=== PATIENT | female | born 1940 | race African-American/Black ===

== ENCOUNTER 2016-10-21 05:37 | Day surgery (SDC) | payer MEDICARE, MEDICAID ==
--- NOTE | 2016-10-18 22:08 | Pre-op HX & Phy Repo 2 SIG ---
DATE OF ADMISSION: 10/21/2016 DATE OF SURGERY: 10/21/2016 PREOPERATIVE DIAGNOSIS: Dislocated intraocular lens left eye with displaced Ozurdex implant, left eye. PROCEDURES PERFORMED WILL BE: 1. Removal and replacement of dislocated intraocular lens. 2. Removal of displaced Ozurdex implant. BRIEF NOTE: This is a second [place] admission for the patient who is a very pleasant 76-year-old lady who has a dislocated intraocular lens and also a displaced Ozurdex implant. PAST OCULAR HISTORY: Remarkable for cataract operation done on the right eye in 2014 followed by similar procedure on the left in early 2015 which was complicated by massive choroidal hemorrhage. She underwent a vitrectomy with drainage of choroidals at [place] in August of 2015 and over time has done well but she is troubled by the displacement of the lens implant and chronic cystoid edema. Ozurdex injection was performed to control the edema roughly three weeks ago but over time the implant displaced anteriorly. She is admitted for removal of the Ozurdex implant and removal and replacement of the lens implant with posterior sewn-in version. PAST MEDICAL HISTORY: Remarkable for arthritis, hypertension, elevated cholesterol. MEDICATIONS: She is on Crestor, hydralazine, levothyroxine, nifedipine. ALLERGIES: She has no known allergies. PHYSICAL EXAMINATION: Best vision at the time of admission was 20/50 in the right eye and 24/100 in the left with pressures of 15. Anterior segment on the right was quiet with a posterior chamber lens in excellent position. The left eye showed fixed dilation of the pupil. The pupil was displaced superiorly. In addition, the sewn in lens implant was displaced nasally and there were visible sutures at 3 and 9 o'clock. Ozurdex implant was noted at the 6 o'clock position without significant corneal edema. Funduscopic examination of the right eye was benign. The left showed the retina to be all attached. The cup was roughly 0.3 but there was obvious cystoid edema. General physical examination will be performed by Dr. Hernandez. ASSESSMENT: 1. Dislocated intraocular lens, left eye. 2. Displaced Ozurdex implant. PLAN: As before would be to remove and replace the intraocular lens with the suture on the right. The Ozurdex implant will also be either repositioned or removed. The risks and benefits of surgery gone over the patient including potential for infection, hemorrhage, need for additional operations, remote possibility of loss of the eye. The risk of anesthesia was discussed. She understands and consents to the surgery, which will be performed on Friday. Jourdan Thomas M.D. DR: Xi JOB#: [id number] CC:
[2016-10-21] VITALS (12 sets, daily range): BP systolic 149–184; BP diastolic 73–91
[~2016-10-21] VITALS: Ht 149.9 cm; Wt 59.0 kg
[~2016-10-21 05:37] MED LIST: ASPIR 8181 MG ORAL; CRESTOR40 MG ORAL; HYDRALAZINE HCL25 M1 ORAL; LEVOTHYROXINE50 MCG ORAL; NIFEDIPINE ER30 M2 ORAL
[2016-10-21] MEDS ORDERED: Ciprofloxacin Opth Soln LEFT EYE SCH (06:00)
[2016-10-21] MEDS ORDERED: Pred Forte 1% Opth Susp 1ml LEFT EYE SCH (06:00)
[2016-10-21] MEDS ORDERED: Cyclopentolate 1% Opth Sol ONE (06:03)
[2016-10-21] MEDS ORDERED: Gatifloxacin Opth Solution 0.5% ONE (06:04)
[2016-10-21] MEDS ORDERED: Phenylephrine 2.5% Op Soln ONE (06:04)
[2016-10-21] MEDS ORDERED: Flurbiprofen 0.03% Opth Sol 2.5ml ONE (06:04)
[2016-10-21] MEDS: Phenylephrine 2.5% Op Soln LEFT EYE SCH ×3 (06:12→06:33)
[2016-10-21] MEDS: Gatifloxacin Opth Solution 0.5% LEFT EYE SCH ×3 (06:12→06:33)
[2016-10-21] MEDS: Flurbiprofen 0.03% Opth Sol 2.5ml LEFT EYE SCH ×3 (06:12→06:32)
[2016-10-21] MEDS: Cyclopentolate 1% Opth Sol OP SCH ×3 (06:12→06:32)
[2016-10-21 06:26] LABS: BASOPHILS % (AUTO) 1.1 % (0.0-2.0); EOSINOPHILS % (AUTO) 1.3 % (0.0-3.0); LYMPHOCYTES % (AUTO) 28.9 % (20.0-45.0); MEAN CORPUSCULAR HGB CONC 32.2 G/DL (32.0-36.0); MEAN CORPUSCULAR VOLUME 90 FL (80-99); MEAN PLATELET VOLUME 10.4 FL (6.5-10.1); MONOCYTES % (AUTO) 9.1 % (1.0-10.0); NEUTROPHILS % (AUTO) 59.5 % (45.0-75.0); PLATELET COUNT 164 K/UL (150-450); RED BLOOD COUNT 5.07 M/UL (4.20-5.40); RED CELL DISTRIBUTION WIDTH 12.5 % (11.6-14.8); WHITE BLOOD COUNT 8.8 K/UL (4.8-10.8)
--- NOTE | 2016-10-21 06:32 | Pre-Procedure Note/Attestation ---
Pre-Procedure Note/Attestation Complete Prior to Procedure Planned Procedure: left Procedure Narrative: PPV, removal of displaced Ozurdex implant, removal and replacement of dislocated IOL, Kenalog injection L eye Indications for Procedure Pre-Operative Diagnosis: Dislocated IOL L eye with CME, Dislocated Ozurdex implant. Attestation I attest that I discussed the nature of the procedure; its benefits; risks and complications; and alternatives (and the risks and benefits of such alternatives ), prior to the procedure, with the patient (or the patient's legal printing sales representative). I attest that, if there was a reasonable possibility of needing a blood transfusion, the patient (or the patient's legal printing sales representative) was given the [place] [facility] standardized written summary, pursuant to the Narciso [place] Blood Safety Act ([place] Health and Safety Code # 1645, as amended). I attest that I re-evaluated the patient just prior to the surgery and that there has been no change in the patient's H&P, except as documented below: GLENN SWENSON October 21, 2016 06:32
[2016-10-21 06:44] LABS: ANION GAP 17 (5-15); CALCIUM 10.5 mg/dL (8.6-10.2); CARBON DIOXIDE 24 mEQ/L (20-30); CHLORIDE 99 mEQ/L (98-107); CREATININE 0.9 mg/dL (0.5-0.9); HEMOLYSIS 64; POTASSIUM 3.9 mEQ/L (3.4-4.9); SODIUM 140 mEQ/L (135-145)
[2016-10-21] MEDS ORDERED: EPINEPHrine 1mg/1ml Amp ONE ×2 (07:07→08:57)
[2016-10-21] MEDS ORDERED: BSS 500ml btl ONE ×2 (07:07→08:57)
[2016-10-21] MEDS ORDERED: Maxitrol Opth Oint 3.5gm ONE (07:07)
[2016-10-21] MEDS ORDERED: Bupivacaine 0.75% 30ml vial INJ ONE (07:08)
[2016-10-21] MEDS ORDERED: Lidocaine 2% MPF 5ml Vial INJ ONE (07:08)
[2016-10-21] MEDS ORDERED: BSS 15ml BTL ONE (07:08)
[2016-10-21] MEDS ORDERED: Kenalog-40 1ml Vial ONE (07:10)
[2016-10-21] MEDS ORDERED: Dexamethasone 4mg/ml vial ONE (07:11)
[2016-10-21] MEDS ORDERED: Sodium Hyaluronate 10 mg/ml 0.85ml ONE (07:11)
[2016-10-21] MEDS ORDERED: Tetracaine 0.5% Opth Soln ONE (07:11)
[2016-10-21] MEDS ORDERED: Kenalog-10 5ml Inj ONE (07:11)
[2016-10-21] MEDS ORDERED: LR 1000ml 1,000 ML IVLG SCH (07:25)
--- NOTE | 2016-10-21 07:25 | Anethesia Preoperative Eval ---
Anesthesia Pre-op PMH/ROS General Date of Evaluation: October 21, 2016 Time of Evaluation: 07:21 Anesthesiologist: Kevin ASA Score: ASA 2 Mallampati Score Class I : Soft palate, uvula, fauces, pillars visible Class II: Soft palate, uvula, fauces visible Class III: Soft palate, base of uvula visible Class IV: Only hard plate visible Mallampati Classification: Class II Surgeon: William Diagnosis: L eye vitreous hemorrhage Surgical Procedure: L eye PPV Anesthesia History: none Family History: no anesthesia problems Allergies: Coded Allergies: No Known Allergies (Unverified , 09/06/15) Medications: see eMAR Past Medical History Cardiovascular: Reports: HTN, Denies: CAD, [place], arrhythmia, other, valve dz Pulmonary: Denies: COPD, ANGELITA, asthma, other Gastrointestinal/Genitourinary: Reports: GERD, Denies: CRI, ESRD, other Neurologic/Psychiatric: Denies: CVA, TIA, dementia, depression/anxiety, other Endocrine: Denies: DM, hypothyroidism, other, steroids HEENT: Reports: cataract (L), cataract (R), Denies: [place] (L), [place] (R), glaucoma, other Hematology/Immune: Denies: DVT, anemia, bleeding disorder, other Musculoskeletal/Integumentary: Reports: DJD, Denies: DDD, OA, RA, edema, other PMH Narrative: as above PSxH Narrative: L eye Sx Anesthesia Pre-op Phys. Exam Physician Exam Last Vital Signs Date Time Temp Pulse Resp B/P Pulse Ox O2 Delivery O2 Flow Rate FiO2 10/21/16 06:19 97.8 18 150/73 99 Room Air Constitutional: NAD Neurologic: CN 2-12 intact Cardiovascular: RRR, no M/R/G Respiratory: CTA Gastrointestinal: S/NT/ND Airway Exam Mallampati Score: Class II MO: full Neck: stiff ROM: limited Teeth: missing Dentures: lower, upper Anesthesia Pre-op A/P Labs Hematology Test 10/21/16 06:10 White Blood Count 8.8 K/UL (4.8-10.8) Red Blood Count 5.07 M/UL (4.20-5.40) Hemoglobin 14.7 G/DL (12.0-16.0) Hematocrit 45.6 % (37.0-47.0) Mean Corpuscular Volume 90 FL (80-99) Mean Corpuscular Hemoglobin 29.0 PG (27.0-31.0) Mean Corpuscular Hemoglobin Concent 32.2 G/DL (32.0-36.0) Red Cell Distribution Width 12.5 % (11.6-14.8) Platelet Count 164 K/UL (150-450) Mean Platelet Volume 10.4 FL (6.5-10.1) H Neutrophils (%) (Auto) 59.5 % (45.0-75.0) Lymphocytes (%) (Auto) 28.9 % (20.0-45.0) Monocytes (%) (Auto) 9.1 % (1.0-10.0) Eosinophils (%) (Auto) 1.3 % (0.0-3.0) Basophils (%) (Auto) 1.1 % (0.0-2.0) Chemistry Test 10/21/16 06:10 Sodium Level 140 mEQ/L (135-145) Potassium Level 3.9 mEQ/L (3.4-4.9) Chloride Level 99 mEQ/L (98-107) Carbon Dioxide Level 24 mEQ/L (20-30) Anion Gap 17 (5-15) H Blood Urea Nitrogen 22 mg/dL (7-23) Creatinine 0.9 mg/dL (0.5-0.9) Estimat Glomerular Filtration Rate mL/min (>60) Glucose Level 113 mg/dL (74-106) H Calcium Level 10.5 mg/dL (8.6-10.2) H Studies Pre-op Studies: EKG - NSR Risk Assessment & Plan Assessment: ASA 2 Plan: MAC with retrobulbar block Status Change Before Surgery: No Pre-Antibiotics Drug: none KIM DALAL M.D. October 21, 2016 07:25
[2016-10-21] MEDS ORDERED: DiphenhydrAMINE 50mg/ml Inj IVP PRN (07:30)
[2016-10-21] MEDS ORDERED: fentaNYL 100 mcg/2 mL IV PRN (07:30)
[2016-10-21] MEDS ORDERED: Povidone-Iodine 5% opth solution ONE (08:00)
[2016-10-21] MEDS ORDERED: Propofol 10mg/ml 20ml IV ONE (08:00)
[2016-10-21] MEDS ORDERED: Midazolam 2mg/2ml Inj ONE (08:00)
[2016-10-21] MEDS ORDERED: fentaNYL 100 mcg/2 mL IV ONE (08:00)
[2016-10-21] MEDS ORDERED: LR 1000ml ONE (08:00)
[2016-10-21] MEDS ORDERED: NS Irrig 1000ml ONE (08:00)
[2016-10-21] MEDS ORDERED: Sterile Water Irrig 1000ml IRRIG ONE (08:00)
--- NOTE | 2016-10-21 09:43 | Brief Operative Note ---
Immediate Post Operative Note Operative Note Chief Complaint: Line in vision L eye Pre-op Diagnosis: Dislocated IOL L eye with CME, Dislocated Ozurdex implant. Procedure: PPV, removal of Ozurdex implant, removal of dislocated IOL, insertion of sutured in posterior chamber lens, Kenalog injection L eye Post-op Diagnosis: same as pre-op Surgeon: [place] Anesthesiologist: evert Anesthesia: general Specimen: none Complications: none Condition: stable Estimated Blood Loss: none Drains: none Implant(s) used?: Yes - 21 diopter [id number] IOL GLENN SWENSON October 21, 2016 09:42
--- NOTE | 2016-10-21 10:56 | Immediate Post-Op Evaluation ---
Immediate Post-Op Evalulation Immediate Post-Op Evalulation Procedure: L eye PPV IOL exchange Date of Evaluation: October 21, 2016 Time of Evaluation: 09:40 IV Fluids: 600 Blood Products: none Estimated Blood Loss: min Urinary Output: none Blood Pressure Systolic: 176 Blood Pressure Diastolic: 86 Pulse Rate: 62 Respiratory Rate: 20 O2 Sat by Pulse Oximetry: 99 Temperature (Fahrenheit): 97.6 Pain Score (1-10): 2 Nausea: No Vomiting: No Complications none Patient Status: reacts, patent, none Hydration Status: adequate KIM DALAL M.D. October 21, 2016 10:56
--- NOTE | 2016-10-21 11:46 | 48 Hour Post Anesthesia Eval ---
Post Anesthesia Evaluation Procedure: L eye PPV IOL exchange Date of Evaluation: October 21, 2016 Time of Evaluation: 11:45 Blood Pressure Systolic: 158 0: 81 Pulse Rate: 62 Respiratory Rate: 20 Temperature (Fahrenheit): 97.6 O2 Sat by Pulse Oximetry: 98 Airway: patent Nausea: No Vomiting: No Pain Intensity: 1 Hydration Status: adequate Cardiopulmonary Status: stable Mental Status/LOC: patient returned to baseline Follow-up Care/Observations: n/a Post-Anesthesia Complications: none Follow-up care needed: ready to discharge KIM DALAL M.D. October 21, 2016 11:46
[2016-10-21] MEDS ORDERED: Norco 5mg/325mg tab ORAL PRN (13:00)
--- NOTE | 2016-10-21 17:59 | Pre-op HX & Phy Repo 2 SIG ---
DATE OF ADMISSION: 10/21/2016 REASON FOR EVALUATION: I was asked by Dr. Jourdan Thomas to see this 76-year-old female, who is going for elective surgery on the left eye. The patient has vitreous hemorrhage, left eye. Please see the History and Physical by Dr. Jourdan Thomas, home health [facility]. The patient was evaluated. Chart was reviewed. Lot of information was obtained from brother at bedside. PAST MEDICAL HISTORY/REVIEW OF SYSTEMS: Remarkable for hypertension, hypothyroidism, and right knee osteoarthritis. Denies history of chest pain, palpitation, or heart attack. No history of stroke or seizures. Denies history of respiratory problem. No history of GI bleeding or constipation. No history of anemia. No recent weight loss or travel or fever. SURGICAL HISTORY: None. MEDICATIONS: Current medications include hydralazine 25 mg, atorvastatin 40 mg, baby aspirin 81 mg daily and Procardia 60 mg long-acting daily. ALLERGIES: Not known. HABITS: Denies history of smoke or alcohol habits. No street drugs. FAMILY HISTORY: Mother from complication of heart attack. Father unknown. PHYSICAL EXAMINATION: GENERAL: Alert, well-developed, well-nourished, small-framed female, in her 70s. No acute distress. VITAL SIGNS: Blood pressure 150/73, temperature 97.8 degrees, pulse 52 and regular, respiration 18 and O2 saturation 99% on room air. HEENT: Head, normocephalic and atraumatic. Ears, clear. No discharge. Nose, clear. No discharge. Mouth, clear and moist. No dentures upper and lower. Eyes, no conjunctivitis or jaundice. Full description per Dr. Jourdan Thomas. SKIN: Dry and warm. No rashes. No diaphoresis. LYMPHATICS: Lymph nodes not enlarged. NECK: Supple. No jugular vein distention. Carotid artery +2. Trachea midline. CHEST: No deformity or asymmetry. No palpable mass. LUNGS: Clear to auscultation and percussion. No rales or rhonchi. HEART: Sinus bradycardia, 2/6 systolic murmur prominent on apex. ABDOMEN: Soft and benign. No rebound. No palpable mass. EXTREMITIES: No edema. No calf tenderness. No varicose veins. Right knee osteoarthritis. GENITOURINARY: No dysuria. No CVA tenderness. NEUROLOGIC: No paralysis. No tremor. No nystagmus. LABORATORY AND DIAGNOSTIC DATA: ECG, sinus bradycardia, minimal voltage criteria for left ventricular hypertrophy and T-wave abnormality, consider lateral ischemia. The patient did not eat or drink from 6 p.m. yesterday. Blood work is pending. IMPRESSION: 1. Vitreous hemorrhage, left eye. 2. Hypertension, controlled. 3. Hypothyroidism. 4. Sinus bradycardia. 5. Left ventricular hypertrophy. 6. Degenerative joint disease of right knee. PLAN: Pars plana vitrectomy, 23 G removal and replacement, left eye per Dr. Jourdan Thomas. CONCLUSION: The patient is a 76-year-old with history of hypertension, hypothyroidism and left ventricular hypertrophy. The patient is asymptomatic. She did not eat or drink from last night. The patient's condition is optimized for surgery. Thank you very much, Dr. Thomas, for privilege to participate in presurgical care of this interesting patient. Kelly Hernandez M.D. DR: YIMI JOB#: [id number] CC:
--- NOTE | 2016-10-21 23:19 | Operative Note - Dictated ---
DATE OF OPERATION: 10/21/2016 PREOPERATIVE DIAGNOSES: 1. Dislocated posterior chamber lens, left eye. 2. Ozurdex implant in the anterior chamber, the left eye. SURGEON: Jourdan Thomas M.D. PHYSICAL THERAPY COORDINATOR: None. ANESTHESIA: LMA General. ANESTHESIOLOGIST: Richmond Joaquin M.D. PROCEDURES PERFORMED: 1. Pars plana vitrectomy. 2. Removal of anterior chamber Ozurdex implant. 3. Removal of malpositioned posterior chamber lens. 4. Insertion of sutured in posterior chamber lens. 5. Kenalog injection, left eye. JUSTIFICATION FOR SURGERY: This is a 76-year-old lady, who previously undergone cataract surgery with a sutured in posterior chamber lens. This was complicated by a malpositioning of the lens and a large hemorrhagic choroidal. The choroidal was repaired, but the displacement and malposition of the lens caused visual disturbances and possibly contributed to chronic cystoid edema. Brief Note: The patient was brought to the operating room and placed on operating room table in supine position. After a time-out was performed and agreed upon by the staff, general LMA anesthesia was induced by Dr. Brown. Retrobulbar and Van Lint blocks were then given in the standard way. When the blocks taken effect, she was prepped and draped in a normal manner. A lid speculum was inserted into the left eye. Peritomies were cut through conjunctiva and tenons at 3 and 9 o'clock going roughly 2 clock hours on either side. The exact 3 and 9 o'clock positions were gently marked. Infusion was inserted inferotemporally using a 23-gauge trocar. Two additional trocars were inserted with cannulas superior to the 3 and 9 o'clock positions, all 2 mm posterior to the limbus. A paracentesis was performed and clear cornea at the 9:30 position after which a Healon was introduced into the eye. A slight attempt at breaking adhesions between cornea and iris superiorly was attempted, but these adhesions were too strong and it was feared that disruption of the endothelium would occur, so this was left alone. The eye was softened and with scleral depression, the edges of the implants were seen. They appeared to be the partially engaged in sclera and ciliary body and not completely sutured. All sutures closed in the previous corneal wounds and securing the implant were removed and using intra-ocular forceps and the membrane pick, the haptics were gently from incarcerated sclera and ciliary body. The lens was grasped with the intra-ocular forceps and gently placed in the anterior chamber with both haptics and the optic being above the iris plane. No complications were encountered in this maneuver. It was elected to remove the Ozurdex at this point and this was gently done through the preformed paracentesis using the intra-ocular forceps. A clear corneal incision, roughly 5 mm was made using the keratome going from the 9:30 to the 1 o'clock positions. Through this, the posterior chamber lens implant, which had been placed in the anterior chamber was engaged with forceps and removed from the eye. A 21 diopter [id number] lens was chosen for suturing into the posterior chamber. Vernon-Nithin suture 8-0 was then used to thread the eye lids external to the eye. A 23-gauge MVR blade was then used to form two additional sclerotomies just below the 3 and 9 o'clock position on either side. Using intra-ocular forceps, the sutures were entered into the eye on either side and pulled through the sclera externalized through the cannula above and through the sclerotomy below. This was done on either side. The lens was introduced into the posterior segment of the eye and each suture was pulled up and secured with the lens being in excellent position. The corneal wound was then closed with interrupted 10-0 nylon sutures with the knots buried. The cannulas were removed from over the sutures and each suture was secured with a 3-1-1 tie of the Vernon-Nithin. The suture was then rotated into the superior sclerotomy on either side so that no knots were left exposed outside. The lens was noted to be retained in excellent position. After this maneuver, Kenalog 2 mg was injected through the infusion line. This was then removed and closed with 6-0 plain. Conjunctiva and tenon's were then pulled up and secured with 6-0 plain catgut, covering all exposed sutures. Subconjunctival Decadron and gentamicin were then injected inferiorly and Maxitrol and atropine ointments were instilled. The eye was patched and shielded and the patient was taken to recovery in excellent condition. No complications. Jourdan Thomas M.D. DR: KAROLYN JOB#: [id number] CC: Jourdan Thomas M.D.; Fax#: [phone]
--- NOTE | 2016-10-22 15:51 | Cardiology Report ---
APPROVED REPORT EKG Measurement Heart [id number] DC [id number] Sinus bradycardia Minimal voltage criteria for LVH, may be normal variant T wave abnormality, consider lateral ischemia Abnormal ECG
== END 2016-10-21 11:00 | disposition home or self-care (01) ==
LOC: SUR 05:37
DX: T85.22XA Displacement of intraocular lens, initial encounter (principal); T85.328A Displacement of other ocular prosthetic devices, implants and grafts, initial encounter; H59.032 Cystoid macular edema following cataract surgery, left eye; Y83.8 Other surgical procedures as the cause of abnormal reaction of the patient, or of later complication, without mention of misadventure at the time of the procedure; Y92.89 Other specified places as the place of occurrence of the external cause; M17.11 Unilateral primary osteoarthritis, right knee; I10 Essential (primary) hypertension; E78.00 Pure hypercholesterolemia, unspecified; E03.9 Hypothyroidism, unspecified; K21.9 Gastro-esophageal reflux disease without esophagitis; R00.1 Bradycardia, unspecified; I51.7 Cardiomegaly
CPT/HCPCS: 36415; 66986; 67120; 80048; 85025; 93005; J0171; J1100; J2250; J2704; J3010; J3301; J3470; J3490; J7120; V2632; 94003; 94150

== ENCOUNTER 2016-12-11 05:34 | Day surgery (SDC) | payer MEDICARE, MEDICAID ==
--- NOTE | 2016-12-10 16:31 | Pre-op HX & Phy Repo 2 SIG ---
DATE OF ADMISSION: 12/11/2016 HISTORY OF PRESENT ILLNESS: This is the latest admission for this patient, who is a very nice 76-year-old lady, who has had significant problems with the left eye. It started in early 2015 when after a cataract operation, she developed explosive choroidal hemorrhaging. She was admitted for choroidal drainage and did reasonably well with the recovery of some degree of vision, but with evidence of chronic visual loss and chronic macular edema. The lens was also severely dislocated. She was readmitted earlier this year for a removal and replacement of the lens. This went well, but after which, she was noted to have hypotony and what appeared to be a serous elevation of the retina, which has not improved. There is some "clouding" of the cornea and it is suspected that there is an unseen retinal break. She is admitted for scleral buckle and repair of the detachment. PAST MEDICAL HISTORY: Remarkable for arthritis, hypertension, and elevated cholesterol. MEDICATIONS: She is on Crestor, hydralazine, levothyroxine, nifedipine, and prednisone. ALLERGIES: She has no known allergies. PHYSICAL EXAMINATION: Best vision at the time of the visit was 20/50 in the right eye and hand motions in the left with pressures of 14 and 10. Anterior segment on the right showed a posterior chamber lens in reasonable position. The left showed a sulcus fixated lens in reasonable position. There was [id number] stromal edema. Funduscopic examination showed inferior fluid, but no definite retinal break. Ultrasonography confirmed the presence of retinal elevation without evidence of significant choroidal effusions. ASSESSMENT: Retinal elevation, left eye. PLAN: The plan is to perform a scleral buckling procedure with a limited pars plana vitrectomy with endolaser and gas with possible silicone oil in an effort to repair the left retinal detachment. Risks and benefits of surgery were gone over with the patient including potential for infection, hemorrhage, inability to repair the detachment, and the possibility of loss of the eye. The risk of anesthesia was discussed. The patient understands and consents to surgery, which will be performed tomorrow morning. Jourdan Thomas M.D. DR: KARLOYN JOB#: [id number] CC:
[~2016-12-11] VITALS: Ht 154.9 cm; Wt 59.9 kg
[2016-12-11] VITALS (10 sets, daily range): BP systolic 143–173; BP diastolic 65–80
[2016-12-11] MEDS ORDERED: Gatifloxacin Opth Solution 0.5% ONE (05:55)
[2016-12-11] MEDS ORDERED: Phenylephrine 2.5% Op Soln ONE (05:56)
[2016-12-11] MEDS ORDERED: Flurbiprofen 0.03% Opth Sol 2.5ml ONE (05:56)
[2016-12-11] MEDS ORDERED: Cyclopentolate 1% Opth Sol ONE (05:56)
[2016-12-11] MEDS: Phenylephrine 2.5% Op Soln LEFT EYE SCH ×3 (06:08→06:40)
[2016-12-11] MEDS: Cyclopentolate 1% Opth Sol LEFT EYE SCH ×3 (06:08→06:39)
[2016-12-11] MEDS: Flurbiprofen 0.03% Opth Sol 2.5ml LEFT EYE SCH ×3 (06:08→06:40)
[2016-12-11] MEDS: Gatifloxacin Opth Solution 0.5% LEFT EYE SCH ×3 (06:09→06:40)
[2016-12-11] MEDS ORDERED: BSS 500ml btl ONE (06:39)
[2016-12-11] MEDS ORDERED: Maxitrol Opth Oint 3.5gm ONE (06:40)
[2016-12-11] MEDS ORDERED: Kenalog-40 1ml Vial ONE (06:40)
[2016-12-11] MEDS ORDERED: Dexamethasone 4mg/ml vial ONE (06:40)
[2016-12-11] MEDS ORDERED: Lidocaine 2% MPF 5ml Vial INJ ONE (06:41)
[2016-12-11] MEDS ORDERED: EPINEPHrine 1mg/1ml Amp ONE (06:41)
[2016-12-11] MEDS ORDERED: Kenalog-10 5ml Inj ONE (06:41)
[2016-12-11] MEDS ORDERED: Tetracaine 0.5% Opth Soln ONE (06:41)
[2016-12-11] MEDS ORDERED: Povidone-Iodine 5% opth solution ONE (06:41)
[2016-12-11] MEDS ORDERED: BSS 15ml BTL ONE (06:42)
[2016-12-11] MEDS ORDERED: Bupivacaine 0.75% 30ml vial INJ ONE (06:42)
--- NOTE | 2016-12-11 06:51 | Anethesia Preoperative Eval ---
Anesthesia Pre-op PMH/ROS General Date of Evaluation: Dec 11, 2016 Anesthesiologist: Steve ASA Score: ASA 2 Mallampati Score Class I : Soft palate, uvula, fauces, pillars visible Class II: Soft palate, uvula, fauces visible Class III: Soft palate, base of uvula visible Class IV: Only hard plate visible Mallampati Classification: Class II Surgeon: William Diagnosis: Left eye vitreous hemorrhage Surgical Procedure: Left eye vitrectomy Anesthesia History: none Family History: no anesthesia problems Allergies: Coded Allergies: No Known Allergies (Unverified , 09/06/15) Medications: see eMAR Past Medical History Cardiovascular: Reports: HTN, other - HLD, Denies: CAD, [place], arrhythmia, valve dz Pulmonary: Denies: COPD, ANGEL[place], asthma, other Gastrointestinal/Genitourinary: Reports: GERD, Denies: CRI, ESRD, other Neurologic/Psychiatric: Denies: CVA, TIA, dementia, depression/anxiety, other Endocrine: Reports: hypothyroidism, Denies: DM, other, steroids HEENT: Denies: [place] (L), [place] (R), cataract (L), cataract (R), glaucoma, other Hematology/Immune: Denies: DVT, anemia, bleeding disorder, other Musculoskeletal/Integumentary: Reports: OA, Denies: DDD, DJD, RA, edema, other PSxH Narrative: Bilateral cataract sx Anesthesia Pre-op Phys. Exam Physician Exam Last Vital Signs Date Time Temp Pulse Resp B/P Pulse Ox O2 Delivery O2 Flow Rate FiO2 12/11/16 06:43 98.1 53 20 160/80 99 Room Air Constitutional: NAD Cardiovascular: RRR Respiratory: CTA Airway Exam Mallampati Score: Class II MO: full ROM: full Anesthesia Pre-op A/P Labs Hematology Test 12/11/16 06:30 White Blood Count Pending Red Blood Count Pending Hemoglobin Pending Hematocrit Pending Mean Corpuscular Volume Pending Mean Corpuscular Hemoglobin Pending Mean Corpuscular Hemoglobin Concent Pending Red Cell Distribution Width Pending Platelet Count Pending Mean Platelet Volume Pending Neutrophils (%) (Auto) Pending Lymphocytes (%) (Auto) Pending Monocytes (%) (Auto) Pending Eosinophils (%) (Auto) Pending Basophils (%) (Auto) Pending Chemistry Test 12/11/16 06:30 Sodium Level Pending Potassium Level Pending Chloride Level Pending Carbon Dioxide Level Pending Blood Urea Nitrogen Pending Creatinine Pending Estimat Glomerular Filtration Rate Pending Glucose Level Pending Calcium Level Pending Studies Pre-op Studies: EKG - SB, LVH Risk Assessment & Plan Assessment: ASA II Plan: GA Status Change Before Surgery: No Pre-Antibiotics Drug: N/A REBECCA BACK M.D. Dec 11, 2016 06:51
[2016-12-11 06:53] LABS: BASOPHILS % (AUTO) 0.7 % (0.0-2.0); EOSINOPHILS % (AUTO) 1.2 % (0.0-3.0); LYMPHOCYTES % (AUTO) 25.7 % (20.0-45.0); MEAN CORPUSCULAR HEMOGLOBIN 29.9 PG (27.0-31.0); MEAN CORPUSCULAR HGB CONC 32.9 G/DL (32.0-36.0); MEAN CORPUSCULAR VOLUME 91 FL (80-99); MEAN PLATELET VOLUME 8.4 FL (6.5-10.1); MONOCYTES % (AUTO) 6.5 % (1.0-10.0); NEUTROPHILS % (AUTO) 65.8 % (45.0-75.0); PLATELET COUNT 168 K/UL (150-450); RED BLOOD COUNT 4.93 M/UL (4.20-5.40); RED CELL DISTRIBUTION WIDTH 13.2 % (11.6-14.8); WHITE BLOOD COUNT 10.6 K/UL (4.8-10.8)
[2016-12-11 06:58] LABS: ANION GAP 15 (5-15); CALCIUM 10.3 mg/dL (8.6-10.2); CARBON DIOXIDE 27 mEQ/L (20-30); CHLORIDE 98 mEQ/L (98-107); CREATININE 0.8 mg/dL (0.5-0.9); HEMOLYSIS 9; POTASSIUM 3.4 mEQ/L (3.4-4.9); SODIUM 140 mEQ/L (135-145)
[2016-12-11] MEDS ORDERED: Propofol 10mg/ml 20ml IV ONE (07:00)
[2016-12-11] MEDS ORDERED: fentaNYL 100 mcg/2 mL IV ONE (07:00)
[2016-12-11] MEDS ORDERED: NS Irrig 1000ml ONE (07:00)
[2016-12-11] MEDS ORDERED: Lidocaine 1% MPF 10mg/ml 5ml ONE (07:00)
[2016-12-11] MEDS ORDERED: Sterile Water Irrig 1000ml IRRIG ONE (07:00)
[2016-12-11] MEDS ORDERED: LR 1000ml ONE (07:00)
[2016-12-11] MEDS ORDERED: LR 1000ml 1,000 ML IVLG SCH (07:01)
[2016-12-11] MEDS ORDERED: DiphenhydrAMINE 50mg/ml Inj IVP PRN (07:15)
[2016-12-11] MEDS ORDERED: Neosporin Oph Soln 5ml Btl ONE (07:39)
[2016-12-11] MEDS ORDERED: Sodium Hyaluronate 10 mg/ml 0.85ml ONE (07:39)
[2016-12-11] MEDS ORDERED: Pred Forte 1% Opth Susp 1ml LEFT EYE SCH (08:00)
--- NOTE | 2016-12-11 09:33 | Immediate Post-Op Evaluation ---
Immediate Post-Op Evalulation Immediate Post-Op Evalulation Procedure: Left eye vitrectomy Date of Evaluation: Dec 11, 2016 Time of Evaluation: 09:34 IV Fluids: 300 Blood Products: 0 Estimated Blood Loss: 0 Urinary Output: 0 Blood Pressure Systolic: 161 Blood Pressure Diastolic: 85 Pulse Rate: 60 Respiratory Rate: 16 O2 Sat by Pulse Oximetry: 99 Temperature (Fahrenheit): 97.2 Pain Score (1-10): 0 Nausea: No Vomiting: No Complications 0 Patient Status: awake, reacts, patent, none Hydration Status: adequate Drug: N/A REBECCA BACK M.D. Dec 11, 2016 09:33
--- NOTE | 2016-12-11 09:40 | Pre-Procedure Note/Attestation ---
Pre-Procedure Note/Attestation Complete Prior to Procedure Planned Procedure: left Procedure Narrative: PPV, Scleral buckle, gas-fluid exchange, endolaser, L eye Indications for Procedure Pre-Operative Diagnosis: Inferior retinal detachment L eye Attestation I attest that I discussed the nature of the procedure; its benefits; risks and complications; and alternatives (and the risks and benefits of such alternatives ), prior to the procedure, with the patient (or the patient's legal retail representative). I attest that, if there was a reasonable possibility of needing a blood transfusion, the patient (or the patient's legal retail representative) was given the [facility] standardized written summary, pursuant to the [place] Blood Safety Act ([place] Health and Safety Code # 1645, as amended). I attest that I re-evaluated the patient just prior to the surgery and that there has been no change in the patient's H&P, except as documented below: GLENN SWENSON Dec 11, 2016 09:40
--- NOTE | 2016-12-11 09:43 | Brief Operative Note ---
Immediate Post Operative Note Operative Note Chief Complaint: Loss of vision L eye Pre-op Diagnosis: Inferior retinal detachment L eye Procedure: PPV, scleral buckle (240/70), cryo (12 spots) Endolaser 1337 spots, endodrainage , gas-fluid exchange (14 % C3F8) Left eye Post-op Diagnosis: same as pre-op Surgeon: William Anesthesiologist: Anne Marie Anesthesia: MAC Specimen: none Complications: none Condition: stable Estimated Blood Loss: none Drains: none Implant(s) used?: Yes - 240 band 70 sleeve GLENN SWENSON Dec 11, 2016 09:43
[2016-12-11] MEDS ORDERED: Norco 5mg/325mg tab ORAL PRN (09:45)
--- NOTE | 2016-12-11 11:00 | Pre-op HX & Phy Repo 2 SIG ---
DATE OF ADMISSION: 12/11/2016 REASON FOR EVALUATION: I was asked by Dr. Jourdan Thomas to see this 76-year-old female, who went for elective surgery on the right eye. The patient has subhyaloid hemorrhage, left eye. The patient was examined. Chart was reviewed. PAST MEDICAL HISTORY/REVIEW OF SYSTEMS: Remarkable for history of hypertension and hypothyroidism. Denies history of heart attack or diabetes. No history of GI bleeding. No history of respiratory problem, bronchitis or emphysema. No asthma. The patient denies history of renal failure. No anemia. PAST SURGICAL HISTORY: Left eye cataract. MEDICATIONS: Current medications include hydralazine, baby aspirin 81 mg, atorvastatin, and eye drops. ALLERGIES: Not known. HABITS: Denies history of tobacco or alcohol use. No street drugs. FAMILY HISTORY: Mother has hypertension. Father unknown. PHYSICAL EXAMINATION: GENERAL: The patient is alert. VITAL SIGNS: Blood pressure 160/80, temperature 98.1 degrees, pulse 53 and regular, respirations 22, and O2 saturation 99% on room air. The patient's BMI is 25 kilogram/square meter. SKIN: Warm. No rashes. No ulcers. LYMPHATICS: Lymph nodes not enlarged. HEENT: Head, normocephalic and atraumatic. Ears, clear. Eyes, full description per Dr. Jourdan Thomas. Mouth, moist and clear. No dentures. NECK: No jugular vein distention. Carotids artery +2. Trachea midline. CHEST: No deformity or asymmetry. No mass. LUNGS: Clear to auscultation and percussion. No rales or rhonchi. HEART: Sinus rhythm. EXTREMITIES: No edema. No calf tenderness. No deformity. GENITOURINARY TRACT: No dysuria. NEUROLOGIC: No tremor. No nystagmus. LABORATORY AND DIAGNOSTIC DATA: Electrocardiogram, normal sinus bradycardia with rate of 64. Left ventricular hypertrophy. The patient by mouth. The patient did not eat or drink from last night. Laboratory, sodium 140, potassium 3.9, chloride 99, BUN 22, creatinine 0.9, blood sugar 113, and calcium 10.5. White blood cells 8.8, red blood cells 5.07, hemoglobin 14, and hematocrit 45.6. IMPRESSION: 1. Subhyaloid hemorrhage, left eye. 2. Hypertension. 3. Hypothyroidism. 4. Sinus bradycardia with left ventricular hypertrophy. 5. Hypercalcemia. PLAN: Pars plana vitrectomy, [address] eye [address] Dr[address] Jourdan Thomas. CONCLUSIONS: The patient's vital signs stable. The patient did not eat or drink from last night. Laboratory shows elevation of calcium, otherwise normal. The patient's condition optimized for surgery. Thank you very much, Dr. Thomas, for privilege to participate presurgical care of this interesting patient. Kelly Hernandez M.D. DR: ASHTYN JOB#: [id number] CC:
--- NOTE | 2016-12-11 11:54 | 48 Hour Post Anesthesia Eval ---
Post Anesthesia Evaluation Procedure: Left eye vitrectomy Date of Evaluation: Dec 11, 2016 Time of Evaluation: 10:55 Blood Pressure Systolic: 143 0: 71 Pulse Rate: 56 Respiratory Rate: 20 Temperature (Fahrenheit): 97.4 O2 Sat by Pulse Oximetry: 100 Airway: patent Nausea: No Vomiting: No Pain Intensity: 0 Hydration Status: adequate Cardiopulmonary Status: at baseline Mental Status/LOC: patient returned to baseline Post-Anesthesia Complications: 0 Follow-up care needed: ready to discharge REBECCA BACK M.D. Dec 11, 2016 11:54
--- NOTE | 2016-12-11 12:15 | Operative Note - Dictated ---
DATE OF OPERATION: 12/11/2016 PREOPERATIVE DIAGNOSIS: Inferior retinal detachment, left eye. POSTOPERATIVE DIAGNOSIS: Inferior retinal detachment, left eye. PROCEDURES: 1. Pars plana vitrectomy. 2. Scleral buckle. 3. Endo drainage. 4. Peripheral cryopexy. 5. Endolaser. 6. Gas fluid exchange, left eye. SURGEON: Jourdan Thomas M.D. SLASHER MACHINE OPERATOR: None. ANESTHESIA: Local sedation. ANESTHESIOLOGIST: Dr. Kenney. JUSTIFICATION FOR SURGERY: This 76-year-old lady after multiple procedures related to an expulsive choroidal was noted to have an inferior retinal detachment. BRIEF NOTE: The patient was brought to the operating room, placed on operating room table in supine position. After a time-out was performed and agreed upon by the staff and initial monitoring secured by Dr. Kenney. Retrobulbar and Van Lint blocks given standard way. When the blocks taken effect, she was prepped and draped in the normal manner. A lid speculum was inserted into the left eye. Examination revealed an inferior retinal detachment with no specific breaks. Using the Nyasia scissors and 0.3 forceps at 360 degree peritomy was cut with relaxation incisions at 3 and 9 o'clock positions. The muscles were isolated and turned on white and black ties. Quadrants were explored and found to be without scleral thinning. Mattress sutures of 5-0 nylon were inserted in each quadrant 3 mm apart in preparation for placement of the buckle. A 240 band was brought around the eye beneath the mattress sutures in the muscles and secured lightly in the supranasal quadrant with a 70 sleeve. The sutures were tied and rotated posteriorly. The buckle was left loose. Examination showed the several suspicious areas near the sclerotomy sites. These were gently treated with cryopexy. Preparation was made for a vitrectomy. Using a 23-gauge trocar system cannulas were placed in all except infranasal quadrant. Infusion secured inferotemporally. Vitrectomy was begun posterior to the lens implant. Visualization was improved using a #64 Hoh blade to remove the corneal epithelium. The redness was noted to be detached inferiorly. A suspicious area along the supranasally was noted suspected of harboring a retinal break. It was felt that endo drainage was appropriate so an Endo cautery was used to perform a drain site slightly superior and nasal to the optic nerve. An air-fluid exchange was performed and through this the drainage of subretinal fluid, was made with the retina flattening nicely. The Endolaser was brought to the eye and a power of 0.3 tate duration 0.2 seconds, a total of 1337 lesions were applied surrounding the suspicious areas and that treating the crest of the buckle 360 degrees. The posterior retinotomy was also treated. A gas exchange was then performed using 14% mixture of C3FA. This went without difficulty. The buckle was tightened slightly and the edges trimmed. The eye was left normotensive at the sclerotomy as the cannulas removed and each sclerotomy was closed with 8-0 Vicryl suture. Conjunctiva and Tenon's capsule were pulled up and secured with 6-0 plain catgut. Subconjunctival Kenalog, Decadron, and gentamicin were injected inferiorly and prednisolone, gatifloxacin, and atropine drops were instilled as well as Maxitrol ointment. The eye was patched and shielded. The patient was taken to recovery in excellent condition to be placed in a face-down position. Jourdan Thomas M.D. DR: CHUCK JOB#: [id number] CC: Jourdan Thomas M.D.; Fax#: [phone]
--- NOTE | 2016-12-13 19:13 | Cardiology Report ---
APPROVED REPORT EKG Measurement Heart [id number] Sinus bradycardia Left ventricular hypertrophy with repolarization abnormality Abnormal ECG
== END 2016-12-11 11:15 | disposition home or self-care (01) ==
LOC: SUR 05:34
DX: H33.8 Other retinal detachments (principal); I10 Essential (primary) hypertension; E78.00 Pure hypercholesterolemia, unspecified; M19.90 Unspecified osteoarthritis, unspecified site; K21.9 Gastro-esophageal reflux disease without esophagitis; E03.9 Hypothyroidism, unspecified; R00.1 Bradycardia, unspecified; I51.7 Cardiomegaly; E83.52 Hypercalcemia; Z79.82 Long term (current) use of aspirin; Z79.899 Other long term (current) drug therapy
CPT/HCPCS: 36415; 67108; 80048; 85025; 93005; J0171; J0360; J1100; J2704; J3010; J3301; J3470; J3490; J7120; 94003; 94150

== ENCOUNTER 2017-03-10 06:10 | Day surgery (SDC) | payer MEDICARE, MEDICAID ==
--- NOTE | 2017-03-07 20:30 | Pre-op HX & Phy Repo 2 SIG ---
DATE OF ADMISSION: 03/10/2017 DATE OF SURGERY: 03/10/2017. PREOPERATIVE DIAGNOSIS: Recurrent retinal detachment, left eye. Brief Note: This is one of several [facility] admissions for this patient, who is a very nice 76-year-old lady, who is admitted for repair of recurrent retinal detachment of the left eye. The patient initially underwent cataract surgery in early 2015 complicated by massive choroidal hemorrhaging. She had choroidal drainage performed subsequent to that with reasonable recovery of retinal function except for significantly dislocated lens and cystoid macular edema that was intractable. She was readmitted for removal of the dislocated lens and replacement. She developed some degree of hypotony after this and underwent a repeat procedure to remove subretinal fluid, placed a scleral buckle, and performed endolaser. This went well until the gas bubble resorbed and she was noted to have recurrence of fluid. She was also noted to show signs of PVR. She is admitted for another procedure involving peeling of membranes, drainage of subretinal fluid, and possibly formation of a retinotomy with silicone oil placement. Past Medical History: Remarkable for arthritis, hypertension, and elevated cholesterol. Medications: She is on Crestor, hydralazine, levothyroxine, and nifedipine. ALLERGIES: She has no known allergies. SOCIAL HISTORY: She does not smoke or drink. Physical Examination: Best vision at the time of the visit was 20/50 in the right eye and light perception with projection in the left with the pressure in the left of 4. The anterior segment on the right showed a posterior chamber lens in good position. The left showed mildly hazy cornea with a faint area of band keratopathy centrally. The cornea was otherwise mildly hazy. A posterior chamber lens was seen and sutured in position with mild debris on both surfaces. Fundus exam showed resorption of the gas bubble. There was mild optic disc hyperemia. The retina was noted to be detached and an open funnel configuration with preretinal fibrosis and what appeared to be inferior PVR. ASSESSMENT: Recurrent detachment of the left eye. Plan: The plan is to perform a pars plana vitrectomy with peeling of the epiretinal membranes, clearing of debris from the lens, retinotomy formation, and injection of silicone oil. The risks and benefits of surgery were gone over with the patient including the potential for infection, recurrent detachment, hemorrhage, inability to repair the detachment, and remote possibility of loss of the eye. The risk of anesthesia was discussed. The patient understands and consents to the surgery to be performed on Friday morning. Jourdan Thomas M.D. DR: KAROLYN JOB#: [id number] CC:
[~2017-03-10] VITALS: Ht 152.4 cm; Wt 62.1 kg
[2017-03-10] VITALS (11 sets, daily range): BP systolic 121–168; BP diastolic 63–81
[~2017-03-10 06:10] MED LIST changes: +Pred Forte 1% Opth Susp 1ml LEFT EYE SCH
--- NOTE | 2017-03-10 06:18 | Pre-Procedure Note/Attestation ---
Pre-Procedure Note/Attestation Complete Prior to Procedure Planned Procedure: left Procedure Narrative: PPV, removal of debris from IOL, silicone oil removal and replacement, membrane peel, endolaser, L eye Indications for Procedure Pre-Operative Diagnosis: Recurrent retinal detachment with PVR left eye Attestation I attest that I discussed the nature of the procedure; its benefits; risks and complications; and alternatives (and the risks and benefits of such alternatives ), prior to the procedure, with the patient (or the patient's legal new accounts banking representative). I attest that, if there was a reasonable possibility of needing a blood transfusion, the patient (or the patient's legal new accounts banking representative) was given the [place] Department [employer] Services standardized written summary, pursuant to the [place] Blood Safety Act ([place] Health and Safety Code # 1645, as amended). I attest that I re-evaluated the patient just prior to the surgery and that there has been no change in the patient's H&P, except as documented below: GLENN SWENSON Mar 10, 2017 06:17
[2017-03-10] MEDS ORDERED: Vigamox Opth Soln 3ml ONE (06:57)
[2017-03-10] MEDS ORDERED: Flurbiprofen 0.03% Opth Sol 2.5ml ONE (06:58)
[2017-03-10] MEDS ORDERED: Phenylephrine 2.5% Op 2ml Soln ONE (06:58)
[2017-03-10] MEDS ORDERED: Cyclopentolate 1% Opth Sol 2ml ONE (06:58)
[2017-03-10] MEDS ORDERED: BSS 500ml btl ONE (07:04)
[2017-03-10] MEDS ORDERED: Dexamethasone 4mg/ml vial ONE (07:05)
[2017-03-10] MEDS ORDERED: Povidone-Iodine 5% opth solution ONE (07:05)
[2017-03-10] MEDS ORDERED: Kenalog-40 1ml Vial ONE (07:05)
[2017-03-10] MEDS ORDERED: Tetracaine 0.5% Opth 4ml Soln ONE (07:05)
[2017-03-10] MEDS ORDERED: Lidocaine 2% MPF 5ml Vial INJ ONE (07:05)
[2017-03-10] MEDS ORDERED: BSS 15ml BTL ONE (07:05)
[2017-03-10] MEDS ORDERED: Kenalog-10 5ml Inj ONE (07:05)
[2017-03-10] MEDS: Vigamox Opth Soln 3ml LEFT EYE SCH ×3 (07:06→07:26)
[2017-03-10] MEDS ORDERED: Bupivacaine 0.75% 30ml vial INJ ONE (07:06)
[2017-03-10] MEDS: Flurbiprofen 0.03% Opth Sol 2.5ml LEFT EYE SCH ×3 (07:07→07:26)
[2017-03-10] MEDS: Phenylephrine 2.5% Op 2ml Soln LEFT EYE SCH ×3 (07:07→07:26)
[2017-03-10] MEDS: Cyclopentolate 1% Opth Sol 2ml LEFT EYE SCH ×3 (07:07→07:26)
[2017-03-10] MEDS ORDERED: ADALAT20 MG ORAL (07:42)
[2017-03-10 08:02] LABS: BASOPHILS % (AUTO) 0.9 % (0.0-2.0); EOSINOPHILS % (AUTO) 1.7 % (0.0-3.0); LYMPHOCYTES % (AUTO) 24.9 % (20.0-45.0); MEAN CORPUSCULAR HEMOGLOBIN 29.4 PG (27.0-31.0); MEAN CORPUSCULAR HGB CONC 31.6 G/DL (32.0-36.0); MEAN CORPUSCULAR VOLUME 93 FL (80-99); MEAN PLATELET VOLUME 8.2 FL (6.5-10.1); MONOCYTES % (AUTO) 11.8 % (1.0-10.0); NEUTROPHILS % (AUTO) 60.7 % (45.0-75.0); PLATELET COUNT 211 K/UL (150-450); RED BLOOD COUNT 4.94 M/UL (4.20-5.40); RED CELL DISTRIBUTION WIDTH 11.3 % (11.6-14.8); WHITE BLOOD COUNT 8.7 K/UL (4.8-10.8)
[2017-03-10 08:14] LABS: ANION GAP 13 (5-15); CALCIUM 10.1 mg/dL (8.6-10.2); CARBON DIOXIDE 26 mEQ/L (20-30); CHLORIDE 101 mEQ/L (98-107); HEMOLYSIS 17; POTASSIUM 4.1 mEQ/L (3.4-4.9); SODIUM 140 mEQ/L (135-145)
[2017-03-10] MEDS ORDERED: Midazolam 2mg/2ml Inj ONE (08:45)
[2017-03-10] MEDS ORDERED: Propofol 200mg/20ml IV ONE (08:45)
[2017-03-10] MEDS ORDERED: fentaNYL 100 mcg/2 mL IV ONE (08:45)
[2017-03-10] MEDS ORDERED: LR 1000ml ONE (08:45)
[2017-03-10] MEDS ORDERED: ePHEDrine 50mg/ml Inj ONE (08:45)
[2017-03-10] MEDS ORDERED: Ketorolac 30mg Inj IV ONE (09:00)
[2017-03-10] MEDS ORDERED: Indocyanine Green 25mg Inj INJ ONE (09:30)
[2017-03-10] MEDS ORDERED: LR 1000ml 1,000 ML IVLG SCH ×2 (09:36→12:06)
--- NOTE | 2017-03-10 09:42 | Anethesia Preoperative Eval ---
Anesthesia Pre-op PMH/ROS General Date of Evaluation: Mar 10, 2017 Time of Evaluation: 08:45 Anesthesiologist: Mercedes ASA Score: ASA 3 Mallampati Score Class I : Soft palate, uvula, fauces, pillars visible Class II: Soft palate, uvula, fauces visible Class III: Soft palate, base of uvula visible Class IV: Only hard plate visible Mallampati Classification: Class II Surgeon: William Diagnosis: Vitreous hemorrhage left eye Surgical Procedure: Vitrectomy, silicone oil injection Family History: no anesthesia problems Allergies: Coded Allergies: No Known Allergies (Unverified , 09/06/15) Medications: see eMAR Past Medical History Cardiovascular: Reports: HTN, CAD, arrhythmia - Bradycardia, Denies: OR, valve dz, other Pulmonary: Denies: asthma, COPD, ANGELITA, other Gastrointestinal/Genitourinary: Denies: GERD, CRI, ESRD, other Neurologic/Psychiatric: Denies: dementia, CVA, depression/anxiety, TIA, other Endocrine: Reports: hypothyroidism, Denies: DM, steroids, other HEENT: Denies: cataract (L), cataract (R), glaucoma, [place] (L), [place] (R), other Hematology/Immune: Denies: anemia, DVT, bleeding disorder, other Musculoskeletal/Integumentary: Denies: OA, RA, DJD, DDD, edema, other PMH Narrative: Hypertension, CAD, bradycardia, hypothyroid, hypercholesterolemia. PSxH Narrative: Bilateral eye surgeries Anesthesia Pre-op Phys. Exam Physician Exam Last Vital Signs Date Time Temp Pulse Resp B/P (MAP) Pulse Ox O2 Delivery O2 Flow Rate FiO2 03/10/17 07:27 98.0 50 19 165/74 98 Room Air Constitutional: NAD Neurologic: CN 2-12 intact Cardiovascular: RRR, no M/R/G Respiratory: CTA Gastrointestinal: S/NT/ND Airway Exam Mallampati Score: Class II MO: full ROM: full Dentures: upper, lower Anesthesia Pre-op A/P Labs Hematology Test 03/10/17 07:50 White Blood Count 8.7 K/UL (4.8-10.8) Red Blood Count 4.94 M/UL (4.20-5.40) Hemoglobin 14.5 G/DL (12.0-16.0) Hematocrit 46.0 % (37.0-47.0) Mean Corpuscular Volume 93 FL (80-99) Mean Corpuscular Hemoglobin 29.4 PG (27.0-31.0) Mean Corpuscular Hemoglobin Concent 31.6 G/DL (32.0-36.0) L Red Cell Distribution Width 11.3 % (11.6-14.8) L Platelet Count 211 K/UL (150-450) Mean Platelet Volume 8.2 FL (6.5-10.1) Neutrophils (%) (Auto) 60.7 % (45.0-75.0) Lymphocytes (%) (Auto) 24.9 % (20.0-45.0) Monocytes (%) (Auto) 11.8 % (1.0-10.0) H Eosinophils (%) (Auto) 1.7 % (0.0-3.0) Basophils (%) (Auto) 0.9 % (0.0-2.0) Chemistry Test 03/10/17 07:50 Sodium Level 140 mEQ/L (135-145) Potassium Level 4.1 mEQ/L (3.4-4.9) Chloride Level 101 mEQ/L (98-107) Carbon Dioxide Level 26 mEQ/L (20-30) Anion Gap 13 (5-15) Blood Urea Nitrogen 22 mg/dL (7-23) Creatinine 1.0 mg/dL (0.5-0.9) H Estimat Glomerular Filtration Rate mL/min (>60) Glucose Level 114 mg/dL (74-106) H Calcium Level 10.1 mg/dL (8.6-10.2) Studies Pre-op Studies: EKG - Sinus kenny, possible lateral ischemia Risk Assessment & Plan Assessment: ASA 3 female for vitrectomy Plan: GA, LMA Status Change Before Surgery: No Pre-Antibiotics Drug: None LYNNE AMBRIZ M.D. Mar 10, 2017 09:41
--- NOTE | 2017-03-10 09:43 | Immediate Post-Op Evaluation ---
Immediate Post-Op Evalulation Immediate Post-Op Evalulation Procedure: Vitrectomy, silicone oil injection left eye Date of Evaluation: Mar 10, 2017 Time of Evaluation: 12:00 IV Fluids: 750 Blood Pressure Systolic: 137 Blood Pressure Diastolic: 65 Pulse Rate: 55 Respiratory Rate: 18 O2 Sat by Pulse Oximetry: 100 Temperature (Fahrenheit): 98.0 Pain Score (1-10): 0 Nausea: No Vomiting: No Complications No complication Patient Status: reacts, patent, none Hydration Status: adequate Drug: None LYNNE AMBRIZ M.D. Mar 10, 2017 09:43
[2017-03-10] MEDS ORDERED: fentaNYL 100 mcg/2 mL IV PRN (09:45)
[2017-03-10] MEDS ORDERED: LR 1000ml 1,000 ML IV SCH (09:45)
--- NOTE | 2017-03-10 11:53 | 48 Hour Post Anesthesia Eval ---
Post Anesthesia Evaluation Procedure: Vitrectomy, silicone oil injection left eye Date of Evaluation: Mar 10, 2017 Time of Evaluation: 12:30 Blood Pressure Systolic: 125 0: 67 Pulse Rate: 54 Respiratory Rate: 18 O2 Sat by Pulse Oximetry: 100 Airway: patent Nausea: No Vomiting: No Pain Intensity: 0 Hydration Status: adequate Cardiopulmonary Status: Stable Mental Status/LOC: patient returned to baseline Follow-up Care/Observations: As per surgery Post-Anesthesia Complications: No anesthetic complication Follow-up care needed: N/A LYNNE AMBRIZ M.D. Mar 10, 2017 11:53
--- NOTE | 2017-03-10 12:13 | Brief Operative Note ---
Immediate Post Operative Note Operative Note Chief Complaint: Loss of vision Left eye Pre-op Diagnosis: Recurrent retinal detachment with PVR left eye Procedure: PPV, Removal of pupillary membrane, ICG assisted membrane peel, peripheral retinotomy, Perfluoron placement and removal, endolaser 1088 spots, silicone oil injection Left eye Post-op Diagnosis: same as pre-op Findings: consistent w/pre-op dx studies Surgeon: montana Anesthesiologist: rudy Anesthesia: general Specimen: none Complications: none Condition: stable Fluids: none Estimated Blood Loss: none Drains: none Implant(s) used?: Yes - Silicone oil 5000 centistokes GLENN SWENSON Mar 10, 2017 12:13
[2017-03-10] MEDS ORDERED: Norco 5mg/325mg tab ORAL PRN (12:15)
[2017-03-10] MEDS ORDERED: Sodium Hyaluronate 10 mg/ml 0.85ml ONE (12:22)
--- NOTE | 2017-03-10 18:15 | Operative Note - Dictated ---
DATE OF OPERATION: 03/10/2017 Preoperative Diagnosis: Recurrent retinal detachment with PVR, left eye. Postoperative Diagnosis: Recurrent retinal detachment with PVR, left eye. PROCEDURES: 1. Pars plana vitrectomy. 2. Removal of pupillary membrane. 3. ICG-assisted membrane peel. 4. Peripheral retinotomy. 5. Perfluoron placement and removal. 6. Endolaser. 7. Silicone oil injection, left eye. SURGEON: Jourdan Thomas M.D. REINSURANCE CLAIMS ANALYST: None. ANESTHESIA: LMA general. ANESTHESIOLOGIST: Narciso Long M.D. Justification For Surgery: This 76-year-old lady with a history of prior expulsive hemorrhage developed a retinal detachment with PVR after previous successful repair of the retinal detachment. She was admitted for surgery. Brief Note: The patient was brought to the operating room, placed on OR table in supine position. After a time-out was performed and agreed upon by the staff, general LMA anesthesia was induced by Dr. Long. Retrobulbar and Van Lint blocks were given in the standard way to limit the need for intraoperative anesthetic. She was then prepped and draped in normal manner. A lid speculum was inserted into the left eye. Using a 23-gauge trocar system, cannulas were placed in all except inferotemporal quadrant. Infusion secured inferonasally. Initial vitrectomy was begun, but it was obvious that the view was compromised by membranes that are grown on the surface of the lens both anterior and posterior. Using a 23-gauge MVR blade to enter the anterior chamber at the 9 o'clock position, the membrane was lysed and peeled freely away. The posterior surface of the membrane was gotten with the vitrector and all remnants were removed to form a clear view posteriorly. Examination revealed severe PVR with an open funnel and at least 2 open breaks, 1 inferiorly at 6 o'clock and another superotemporally. The retina itself was redundantly folded on itself near the pars plana resulting in significant stretch. Membranes were dissected as completely as possible, but there was still foreshortening and stretching of the retina. So, it was elected to perform a retinotomy. Initially 180 degrees temporally was performed after endodiathermy and cutting with the intra-ocular scissors and the vitrector. There was still traction remaining so once the posterior pole was stabilized with Perfluoron, the retinotomy was continued to essentially 360 degrees. The retina was noted to flatten in an area extending out to almost the equator in a postage stamp fashion. The peripheral retinal tissue was dissected away with a cutter. Beneath the heavy fluid, the retina was gently smoothed to as widened area as possible preserving the macula and posterior pole. The endolaser was then used to place a double row around the edges of the flattened retina. A total of 1088 spots were applied. Silicone oil was then used, 5000 centistokes to affect a 95% fill leaving an air bubble in the anterior chamber. A small iridotomy had been previously cut at the 7 o'clock position. The pressure was left normalized and all sclerotomies were closed with 8-0 Vicryl suture with the conjunctiva being pulled up over the knots. Subconjunctival Decadron and gentamicin were then injected, and Maxitrol and atropine ointments were instilled. The eye was patched and shielded, and the patient was taken to recovery in excellent condition. He was to be placed in a face-down position. It should be noted that the prognosis is guarded because of the tendency towards the PVR. This was communicated with the family. Jourdan Thomas M.D. DR: JENNY JOB#: [id number] CC:
--- NOTE | 2017-03-17 18:15 | Pre-op HX & Phy Repo 2 SIG ---
DATE OF ADMISSION: 03/10/2017 NOTE: INCOMPLETE DICTATION. PRESURGICAL HISTORY AND PHYSICAL The patient seen at [facility] on 03/10/2017. History Of Present Illness: The patient is a 76-year-old female who was examined. Chart was reviewed. The patient came for left eye elective surgery. The patient admitted with hemorrhage in the left eye. Please see history and physical by Dr. Jourdan Thomas. Also Dr. Thomas asked me to see the patient in presurgical evaluation. Past Medical History: Remarkable for hypertension, hypothyroidism, coronary artery disease, bradycardia, and hyperlipidemia. Denies history of renal problem. No history of stroke or seizures. No history of lung problem. No anemia. PAST SURGICAL HISTORY: None. Family History: Mother from [place] at age 53. Father from heart attack as well. ALLERGIES: Not known. Kelly Hernandez M.D. DR: ALFREDO JOB#: [id number] CC:
--- NOTE | 2017-03-17 19:19 | Cardiology Report ---
APPROVED REPORT EKG Measurement Heart [id number] CT 180P66 [id number] Sinus bradycardia T wave abnormality, consider inferolateral ischemia Abnormal ECG
== END 2017-03-10 13:30 | disposition home or self-care (01) ==
LOC: SUR 06:10
DX: H33.22 Serous retinal detachment, left eye (principal); H43.12 Vitreous hemorrhage, left eye; I10 Essential (primary) hypertension; M19.90 Unspecified osteoarthritis, unspecified site; I25.10 Atherosclerotic heart disease of native coronary artery without angina pectoris; R00.1 Bradycardia, unspecified
CPT/HCPCS: 36415; 67041; 80048; 85025; 93005; J1100; J2250; J2405; J2704; J3010; J3470; J3490; J7120; 94003; 94150